=== PATIENT | female | born 1965 | race Two or more races ===

== ENCOUNTER 2023-03-29 09:46 | Emergency (ER) | payer MEDICARE, MEDICAID ==
[~2023-03-29] VITALS: Ht 167.6 cm; Wt 77.0 kg
[2023-03-29] MEDS ORDERED: PANTOPRAZOLE SODIUM 40 MG/VIAL IV STA (09:55)
[2023-03-29] MEDS ORDERED: MAGNESIUM/ALUMINUM HYDROXIDE/SIMETHICONE 30ML UDC PO STA (09:55)
[2023-03-29] MEDS ORDERED: ONDANSETRON HCL 4MG/2ML INJ IV STA (09:55)
[2023-03-29] MEDS ORDERED: ALBUTEROL (0.083%) 2.5MG/3ML NEB HHN STA (09:57)
[2023-03-29] MEDS ORDERED: IPRATROPIUM BROMIDE (0.02%) 0.5MG/2.5ML NEB HHN STA (09:57)
[2023-03-29] MEDS ORDERED: LORAZEPAM 2MG/ML CPJ IV ONE (10:00)
[2023-03-29 13:09] LABS: BASOPHILS % 0.4 % (0.0-2.0); HEMATOCRIT. 31.3 % (36.0-48.0); HEMOGLOBIN. 10.3 g/dL (12.0-16.0); MEAN CORPUSCULAR HEMOGLOBIN 29.2 pg (28.0-32.0); MEAN CORPUSCULAR HGB CONC 32.9 g/dL (31.0-37.0); MEAN CORPUSCULAR VOLUME 88.7 fL (81.0-99.0); MEAN PLATELET VOLUME 7.3 fl (7.4-10.4); MONOCYTES % 5.8 % (2.0-8.0); NEUTROPHILS % 83.8 % (40.0-76.0); PLATELET 317 x1000/uL (130-400); RED BLOOD CELL COUNT 3.53 mill/uL (4.2-5.4); RED CELL DISTRIBUTION WIDTH 17.7 % (11.6-14.6); WHITE BLOOD COUNT 7.2 x1000/uL (4.5-11.0)
[2023-03-29 13:12] LABS: HCG SCREEN NEGATIVE
[2023-03-29 13:14] LABS: CHLORIDE 110 mEq/L (98-107); INDEX HEMOLYSI 1 (1-3); INDEX ICTERIC 1 (1-4); INDEX LIPEMIC 1 (1-3); POTASSIUM 3.9 mEq/L (3.5-5.1); SODIUM 139 mEq/L (136-145)
[2023-03-29 13:22] LABS: PROTHROMBIN TIME 10.4 sec (9.6-11.0)
[2023-03-29 13:23] LABS: ALANINE AMINOTRANSFERASE 18 IU/L (13-61); ALBUMIN 3.6 g/dL (3.4-5.0); ASPARTATE AMINOTRANSFERASE 12 IU/L (15-37); BILIRUBIN TOTAL 0.3 mg/dL (0.1-1.0); CALCIUM 8.5 mg/dL (8.5-10.1); CARBON DIOXIDE 24 mEq/L (21-32); CREATININE 0.7 mg/dL (0.6-1.3); GLUCOSE 124 mg/dL (70-105); PROTEIN TOTAL 7.1 g/dL (6.0-8.3); UREA NITROGEN BLOOD 19 mg/dL (7-21)
[2023-03-29] MEDS ORDERED: ONDA4TAB50 MT (15:14)
[2023-03-29] MEDS ORDERED: HYDR10TA34 MT (15:14)
[2023-03-29] MEDS ORDERED: ALBU6.7H3 INH (15:58)
[2023-03-29] MEDS ORDERED: ALBUTEROL (0.5%) 2.5MG/0.5ML NEB HHN ONE (16:00)
[2023-03-29 16:05] VITALS: PULSE 76; RESP 20; O2SAT 100
[2023-03-29 17:06] LABS: CLARITY URINE CLEAR (CLEAR); COLOR URINE YELLOW (YELLOW); GLUCOSE URINE NEGATIVE (NEGATIVE); KETONES URINE NEGATIVE (NEGATIVE); LEUKOCYTE ESTERASE URINE NEGATIVE (NEGATIVE); NITRITE URINE NEGATIVE (NEGATIVE); OCCULT BLOOD URINE NEGATIVE (NEGATIVE); PH URINE 6.5 (4.5-8.0); PROTEIN URINE NEGATIVE (NEGATIVE); SPECIFIC GRAVITY URINE 1.012 (1.005-1.030); UROBILINOGEN URINE 0.2 E.U./dL (0.2-1.0)
[2023-03-29 17:22] LABS: TROPONIN I HIGH SENSITIVITY 10 ng/L (<54)
[2023-03-29 18:50] VITALS: BP 121/76; PULSE 76; RESP 16; TEMP 97.5
== END 2023-03-29 18:51 | disposition home or self-care (01) ==
LOC: ER 09:46
DX: F41.0 Panic disorder [episodic paroxysmal anxiety] (principal); J44.1 Chronic obstructive pulmonary disease with (acute) exacerbation; R10.13 Epigastric pain; D64.9 Anemia, unspecified; F41.9 Anxiety disorder, unspecified; F17.210 Nicotine dependence, cigarettes, uncomplicated
CPT/HCPCS: 99285; 96374; 71045; 96375; 80053; 81003; 84703; 83690; 85025; 85610; 84484; 36415; 94640; 93005; J2060; J2405; C9113; C1893